=== PATIENT | male | born 1995 | race African-American/Black ===

== ENCOUNTER 2017-03-09 08:08 | Emergency (ER) | payer SELFPAY ==
[~2017-03-09] VITALS: Ht 180.3 cm; Wt 68.0 kg
[2017-03-09 12:06] VITALS: BP 128/90
== END 2017-03-09 12:10 | disposition home or self-care (01) ==
LOC: ER 08:08
DX: S46.811A Strain of other muscles, fascia and tendons at shoulder and upper arm level, right arm, initial encounter (principal); X50.0XXA Overexertion from strenuous movement or load, initial encounter; Y93.89 Activity, other specified; Y99.8 Other external cause status; Y92.89 Other specified places as the place of occurrence of the external cause
CPT/HCPCS: 73030